=== PATIENT | male | born 1995 | race Caucasian/White ===

== ENCOUNTER 2023-01-11 05:22 | Emergency (ER) | payer MEDICAID ==
[~2023-01-11] VITALS: Ht 167.6 cm; Wt 106.0 kg
[2023-01-11 05:28] VITALS: O2SAT 96
[2023-01-11] MEDS ORDERED: MORPHINE SULFATE 4 MG/ML CPJ (NOT FOR IM USE) IV STA (06:23)
[2023-01-11] MEDS ORDERED: ONDANSETRON HCL 4MG/2ML INJ IV STA (06:23)
[2023-01-11 07:14] LABS: PROTHROMBIN TIME 11.2 sec (9.6-11.0)
[2023-01-11 07:15] LABS: CHLORIDE 100 mEq/L (98-107)
[2023-01-11 07:17] LABS: BASOPHILS % 0.7 % (0.0-2.0); EOSINOPHILS % 1.4 % (0.0-5.0); HEMATOCRIT. 40.9 % (42.0-52.0); HEMOGLOBIN. 14.1 g/dL (14.0-18.0); LYMPHOCYTES % 26.8 % (20.0-50.0); MEAN CORPUSCULAR HEMOGLOBIN 30.6 pg (28.0-32.0); MEAN CORPUSCULAR VOLUME 88.9 fL (80.0-94.0); MONOCYTES % 10.2 % (2.0-8.0); NEUTROPHILS % 60.9 % (40.0-76.0); PLATELET 284 x1000/uL (130-400); RED CELL DISTRIBUTION WIDTH 13.6 % (11.6-14.6)
[2023-01-11 08:41] LABS: CLARITY URINE CLEAR (CLEAR); COLOR URINE YELLOW (YELLOW); KETONES URINE TRACE (NEGATIVE); LEUKOCYTE ESTERASE URINE NEGATIVE (NEGATIVE); NITRITE URINE NEGATIVE (NEGATIVE); OCCULT BLOOD URINE NEGATIVE (NEGATIVE); PROTEIN URINE NEGATIVE (NEGATIVE); SPECIFIC GRAVITY URINE 1.011 (1.005-1.030); UROBILINOGEN URINE 0.2 E.U./dL (0.2-1.0)
[2023-01-11] MEDS ORDERED: TOPUD PO (09:58)
[2023-01-11 10:16] VITALS: BP 112/67; PULSE 93; RESP 16; TEMP 98.8
== END 2023-01-11 10:20 | disposition home or self-care (01) ==
LOC: ER 05:51
DX: R10.9 Unspecified abdominal pain (principal)
CPT/HCPCS: 80053; 81003; 83690; 85025; 85610; 84484; 36415; 71045; 74176; 96374; 96375; 99285; J2405; J2270; Z7610